=== PATIENT | male | born 1930 | race Caucasian/White ===

== ENCOUNTER 2018-01-02 17:18 | Emergency (ER) | payer MEDICARE, BC ==
[~2018-01-02] VITALS: Ht 172.7 cm; Wt 69.1 kg
[~2018-01-02 17:18] MED LIST: ASPIRIN 32325 MG/TAB PO; CARDURA4 MG PO; CENTRUM SILVER1 CTB PO; DESYREL 50MG50 MG PO; FLONASE NASAL S16 GM NS; FOSAMAX 70MG TA70 MG PO; LEVOXYL0.125 MG PO; LIPITOR20 MG PO; OMEGA-3 FISH1200 MG PO; PRILOSEC 20MG20 MG PO; RITE AID NATU200 MCG PO; VITAMIN D3400 IU PO; VITAMIN E1000 U/CAP PO; ZETIA 10MG TAB10 MG PO; ZYRTEC 10MG10 MG PO
[2018-01-02 17:31] VITALS: BP 125/59; TEMP 98.1
[2018-01-02] MEDS ORDERED: ARICEPT 5MG PO (17:55)
[2018-01-02] MEDS ORDERED: PROZAC 20MG20 MG PO (17:55)
[2018-01-02] MEDS ORDERED: PRINIVIL5 MG PO (17:57)
[2018-01-02] MEDS ORDERED: LOPRESSOR 225 MG/TAB PO (17:58)
[2018-01-02] MEDS ORDERED: ULTRAM 50MG TAB50 MG PO (17:59)
[2018-01-02 19:37] LABS: BASO # 0.1 (0.0-0.2); BASO % 0.4 % (0.0-2.0); EOS # 0.1 (0.0-0.7); EOS % 0.9 % (0-4.0); GRAN # 9.6 (1.4-6.5); GRAN % 70.2 % (42.2-75.2); HEMATOCRIT 41.4 % (42.0-52.0); HEMOGLOBIN 13.6 g/dl (13.5-18.0); LYMPH % 14.7 % (20.0-51.0); MEAN CELL VOLUME 93 fl (80.0-100.0); MEAN CORPUSCULAR HEMOGLOBIN 31 pg (27.0-31.0); MEAN CORPUSCULAR HGB CONC 33 g/dl (33.0-37.0); MONO # 1.8 (0.1-0.6); MONO % 13.4 % (1.7-9.3); PLATELET COUNT 140 K/mm3 (130-400); RED BLOOD COUNT 4.45 M/mm3 (4.20-5.60); REDCELL DISTRIBUTION WIDTH-CV 13.9 % (11.5-14.5)
[2018-01-02 19:51] LABS: BILIRUBIN,TOTAL 0.8 mg/dL (0.0-1.0); CALCIUM 9.3 mg/dL (8.4-10.2); CREATININE, serum 1.64 mg/dL (0.66-1.25); POTASSIUM 4.3 mmol/L (3.4-5.0); TOTAL PROTEIN 7.2 gm/dL (6.4-8.2)
[2018-01-02 20:20] LABS: COLLECTION METHOD CLEAN CATCH
[2018-01-02 20:33] LABS: GRANULAR CAST >12 /lpf; HYALINE CAST >12 /lpf; MUCOUS Present /lpf; PH 5 (5-8); SQUAMOUS EPITHELIAL 0-2 /hpf; URINE APPEARANCE Cloudy; URINE BACTERIA Rare /hpf; URINE BILIRUBIN Negative (NEGATIVE); URINE BLOOD Negative (NEGATIVE); URINE COLOR Amber; URINE GLUCOSE Negative (NEGATIVE); URINE KETONE Trace (NEGATIVE); URINE LEUKOCYTE ESTERASE Trace (NEGATIVE); URINE NITRATE Negative (NEGATIVE); URINE PROTEIN(semi-quant) 2+ (NEGATIVE)
[2018-01-02] MEDS ORDERED: CEFTIN 250250 MG/TAB PO (20:41)
[2018-01-02 21:01] VITALS: PULSE 60
== END 2018-01-02 21:01 | disposition home or self-care (01) ==
LOC: COL.ER 17:18
PROVIDERS: Family Medicine
DX: S06.330A Contusion and laceration of cerebrum, unspecified, without loss of consciousness, initial encounter (principal); S01.312A Laceration without foreign body of left ear, initial encounter; S39.012A Strain of muscle, fascia and tendon of lower back, initial encounter; N39.0 Urinary tract infection, site not specified; K21.9 Gastro-esophageal reflux disease without esophagitis; E78.5 Hyperlipidemia, unspecified; Z79.51 Long term (current) use of inhaled steroids; Z79.82 Long term (current) use of aspirin; W19.XXXA Unspecified fall, initial encounter

== ENCOUNTER 2018-01-09 16:53 | Emergency (ER) | payer MEDICARE, BC ==
[~2018-01-09 16:53] MED LIST changes: +ARICEPT 5MG PO; +CEFTIN 250250 MG/TAB PO; +LOPRESSOR 225 MG/TAB PO; +PRINIVIL5 MG PO; +PROZAC 20MG20 MG PO; +ULTRAM 50MG TAB50 MG PO
[2018-01-09 17:06] VITALS: PULSE 79
== END 2018-01-09 17:09 | disposition home or self-care (01) ==
LOC: COL.ER 16:53
DX: S01.312D Laceration without foreign body of left ear, subsequent encounter (principal); Z79.82 Long term (current) use of aspirin; Z79.51 Long term (current) use of inhaled steroids; X58.XXXD Exposure to other specified factors, subsequent encounter

== ENCOUNTER 2018-12-17 15:15 | Outpatient (RCR) | payer MEDICARE, BC ==
[~2018-12-17 15:15] MED LIST changes: +CALCIUM 600/VIT1 CAP PO
== END 2018-12-18 | disposition home or self-care (01) ==
LOC: WSST
DX: R48.9 Unspecified symbolic dysfunctions (principal); F03.90 Unspecified dementia, unspecified severity, without behavioral disturbance, psychotic disturbance, mood disturbance, and anxiety

== ENCOUNTER 2019-03-04 14:45 | Outpatient (RCR) | payer MEDICARE, BC | END 2019-03-31 | disposition home or self-care (01) | LOC: WSST | DX: F03.90 Unspecified dementia, unspecified severity, without behavioral disturbance, psychotic disturbance, mood disturbance, and anxiety (principal) ==

== ENCOUNTER 2019-04-10 14:30 | Outpatient (RCR) | payer MEDICARE, BC | END 2019-06-30 | disposition home or self-care (01) | LOC: WSST | DX: F03.90 Unspecified dementia, unspecified severity, without behavioral disturbance, psychotic disturbance, mood disturbance, and anxiety (principal) ==